=== PATIENT | female | born 1985 | race Caucasian/White ===

== ENCOUNTER → 2018-12-29 | Outpatient (CLI) | payer OTHER ==
--- NOTE | 2018-12-29 12:01 | RADIOLOGY IMAGING REPORT ---
FACILITY: [facility] - [place] PATIENT NAME: Kelly Caldwell : 1985 MR: [id number] V: [id number] EXAM DATE: ORDERING PHYSICIAN: EDGAR AGUIRRE TECHNOLOGIST: Location: [facility] - [place] Patient: Kelly Caldwell : 1985 Visit/Account:[id number] Date of Sevice: 12/29/2018 Exam type: SOFT TISSUE HEAD NECK History: Three lumps in right occipital area x1 month Comparison: None. Findings: Five ovoid well-circumscribed hypoechoic masses are seen in the subcutaneous soft tissues in the occi pital region ranging in size from 8 mm to 1.3 cm. These appear hypovascular. These may represent ly mph nodes IMPRESSION: 1. There five ovoid well-circumscribed hypoechoic masses measuring up to 1.3 cm in diameter along th e posterior right occiput. This may represent lymph nodes. If further evaluation is desired CT or M R may be helpful with contrast Report Dictated By: Arabella Quintero MD at 12/29/2018 11:55 AM Report E-Signed By: Arabella Quintero MD at 12/29/2018 11:57 AM WSN:[email or web address]
== END ==
LOC: US 08:58
PROVIDERS: ATTEND Nurse Practitioner Family
DX: R22.1 Localized swelling, mass and lump, neck (principal)
CPT/HCPCS: 76536

== ENCOUNTER 2019-01-10 15:25 | Outpatient (RCR) | payer OTHER ==
[2019-01-17] MEDS ORDERED: INSU100V24 SQ (11:26)
[2019-01-17] MEDS ORDERED: CITA-145 PO (11:43)
[2019-01-17] MEDS ORDERED: LEVO150T78 PO (11:43)
== END 2019-01-10 18:00 | disposition home or self-care (01) ==
LOC: CT 15:25 → EDSTATUS 01-11 15:25
PROVIDERS: ATTEND Nurse Practitioner Family
DX: Z01.812 Encounter for preprocedural laboratory examination (principal); R22.0 Localized swelling, mass and lump, head
CPT/HCPCS: 36415; 82565

== ENCOUNTER → 2019-01-11 | Outpatient (CLI) | payer OTHER ==
[~2019-01-11] MED LIST: IOPAMIDOL 76% 100 ML INFUS BTL 100 ML ONE; LORA-1455 PO
--- NOTE | 2019-01-11 16:39 | RADIOLOGY IMAGING REPORT ---
FACILITY: [facility] - [place] PATIENT NAME: Kelly Caldwell : 1985 MR: [id number] V: [id number] EXAM DATE: ORDERING PHYSICIAN: EDGAR AGUIRRE TECHNOLOGIST: Location: [facility] - [place], [place] Patient: Kelly Caldwell : 1985 Visit/Account:[id number] Date of Sevice: 01/11/2019 Study: CT scan of the brain without and with intravenous contrast. Contrast: 75 mL Isovue-370 Indication:Nodules right occipital area Comparison study:None Technique: Multiple axial images were obtained through the brain without and with the use of intraven ous contrast. One of the following dose optimization techniques was utilized in the performance of this exam: Autom ated exposure control; adjustment of the mA and/or kV according to the patient's size; or use of an i terative reconstruction technique. Specific details can be referenced in the facility's radiology C T exam operational policy. The examination demonstrates no evidence of acute intracranial hemorrhage. There is no evidence of ex tra-axial collection or hydrocephalus. There is no abnormal density identified within the brain parenchyma. There is no evidence of disruption of the peripheral barber-white junction. There is no abnormal contrast enhancement identified. The bony structures are unremarkable. Within the upper neck, there are nodular densities within the subcutaneous fat posteriorly. These wi ll be discussed on the accompanying CT scan of the neck. IMPRESSION:Unremarkable CT scan of the brain without and with contrast. There are nodular densities within the subcutaneous fat of the upper neck. Report Dictated By: Adriano Andersen at 01/11/2019 4:30 PM Report E-Signed By: Adriano Andersen at 01/11/2019 4:34 PM WSN:[id number]
--- NOTE | 2019-01-11 17:00 | RADIOLOGY IMAGING REPORT ---
FACILITY: [facility] - [place] PATIENT NAME: Kelly Caldwell : 1985 MR: [id number] V: [id number] EXAM DATE: ORDERING PHYSICIAN: EDGAR AGUIRRE TECHNOLOGIST: Location: Patient: Kelly Caldwell : 1985 Visit/Account:[id number] Date of Sevice: 01/11/2019 Study: CT scan of the neck with intravenous contrast Indication: Posterior neck subcutaneous nodules Contrast utilized: 75 mL Isovue 370 Technique: Multiple axial images were obtained through the neck following the intravenous administrat ion of iodinated contrast. Coronal and sagittal two-dimensional reconstructions were made from the original data set. One of the following dose optimization techniques was utilized in the performance of this exam: Autom ated exposure control; adjustment of the mA and/or kV according to the patient's size; or use of an i terative reconstruction technique. Specific details can be referenced in the facility's radiology C T exam operational policy. The examination demonstrates the presence of adenopathy within the axillary bilaterally. There is no significant mediastinal adenopathy. There is a solitary enlarged 1.5 cm lymph node within the level two region bilaterally. There are several small enhancing subcutaneous nodules present in the superior posterior neck. These likely represent small lymph nodes. The airway is unremarkable. There is no evidence of abnormality of the parotid or submandibular glan ds. The tongue base and floor of mouth are unremarkable. The thyroid gland is unremarkable. IMPRESSION: Widespread adenopathy as described. The adenopathy is most marked in the axillae bilater ally. This is concerning for a disseminated lymphoma. Clinical correlation is recommended. Toyin, a nurse at the office was made aware of these findings at 4:45 PM Report Dictated By: Adriano Andersen at 01/11/2019 4:34 PM Report E-Signed By: Adriano Andersen at 01/11/2019 4:56 PM WSN:[id number]
== END ==
LOC: CT 14:50
PROVIDERS: ATTEND Nurse Practitioner Family
DX: R22.1 Localized swelling, mass and lump, neck (principal); R22.0 Localized swelling, mass and lump, head
CPT/HCPCS: 70470; 70491; Q9967

== ENCOUNTER 2019-01-13 10:34 | Emergency (ER) | payer OTHER ==
[2019-01-13 10:57] VITALS: BP 117/70
--- NOTE | 2019-01-13 11:17 | ER Report ---
History and Physical Time Seen By MD: 11:17 Hx. of Stated Complaint: PATIENT HAD CAT SCAN DONE ON TUESDAY THAT SHOWED ADENOPATHY IN THE NECK AND LYMPH NODES IN THE CHEST. PATIENT HAS SHORTNESS OF BREATH WHILE LAYING DOWN THAT FEELS LIKE PRESSURE AND DOES NOT FEEL SAFE TO SLEEP HPI/ROS CHIEF COMPLAINT: Shortness of breath, enlarged lymph nodes HISTORY OF PRESENT ILLNESS: 23-year-old female patient presents to emergency room with complaint of shortness of breath, enlarged lymph nodes. Patient states she has been having enlarged lymph nodes for quite some time. She saw her primary care provider who ordered an ultrasound and ultimately CT scan. The results showed enlarged lymph nodes in bilateral axilla. Patient states that she has struggled recently. Stating that she has a hard time laying down at night. She states when that happens become short of breath. She denies any fevers, but states she has had chills starting yesterday and today. She denies any nausea, vomiting or diarrhea. Patient states she's had a cough for approximately 2-3 weeks. She does have a follow-up appointment with oncology on Tuesday. REVIEW OF SYSTEMS: Respiratory: As noted above. Cardiovascular: No chest pain, no palpitations. Gastrointestinal: No vomiting, no abdominal pain. Musculoskeletal: No back pain. Allergies: Coded Allergies: No Known Drug Allergies (Unverified , 01/13/19) Home Meds Active Scripts Lorazepam (ATIVAN) 0.5 Mg Tablet, 0.5 MG PO Q4-6H, #20 TAB Prov:CASSIUS RODARTE LORENA 01/13/19 Past Medical/Surgical History Patient has a past medical history of diabetes, hypothyroidism, anxiety. Patient has no pertinent surgical history. Reviewed Nurses Notes: Yes Hx Substance Use Disorder: No Hx Alcohol Use: No Constitutional Vital Sign - Last 24 Hours 01/13/19 01/13/19 01/13/19 01/13/19 10:34 10:50 10:54 10:57 Temp 98.5 Pulse 82 84 88 Resp 18 B/P (MAP) 117/70 117/70 (86) Pulse Ox 98 O2 Delivery Room Air 01/13/19 01/13/19 01/13/19 01/13/19 11:14 11:34 11:54 12:14 Pulse 87 81 85 82 Pulse Ox 98 94 94 Physical Exam General Appearance: The patient is alert, has no immediate need for airway protection and no current signs of toxicity. Respiratory: Chest is non tender, lungs are clear to auscultation. Cardiac: regular rate and rhythm Gastrointestinal: Abdomen is soft and non tender, no masses, bowel sounds normal. Musculoskeletal: Neck: Neck is supple and non tender. Extremities have full range of motion and are non tender. Skin: No rashes or lesions. DIFFERENTIAL DIAGNOSIS: After history and physical exam differential diagnosis was considered for influenza, infection, pneumonia, bronchitis Medical Decision Making Data Points Result Diagram: 01/13/19 1149 01/13/19 1149 Laboratory Hematology Test 01/13/19 11:49 01/13/19 12:02 Red Blood Count 4.26 M/uL (4.17-5.56) Mean Corpuscular Volume 93.8 fL (80.0-96.0) Mean Corpuscular Hemoglobin 31.4 pg (26.0-33.0) Mean Corpuscular Hemoglobin Concent 33.5 g/dL (32.0-36.0) Red Cell Distribution Width 13.7 % (11.5-14.5) Mean Platelet Volume 7.8 fL (7.2-11.1) Neutrophils (%) (Auto) 84.0 % (39.4-72.5) Lymphocytes (%) (Auto) 10.6 % (17.6-49.6) Monocytes (%) (Auto) 4.9 % (4.1-12.4) Eosinophils (%) (Auto) 0.1 % (0.4-6.7) Basophils (%) (Auto) 0.4 % (0.3-1.4) Nucleated RBC Relative Count (auto) 0.1 /100WBC Neutrophils # (Auto) 9.7 K/uL (2.0-7.4) Lymphocytes # (Auto) 1.2 K/uL (1.3-3.6) Monocytes # (Auto) 0.6 K/uL (0.3-1.0) Eosinophils # (Auto) 0.0 K/uL (0.0-0.5) Basophils # (Auto) 0.0 K/uL (0.0-0.1) Nucleated RBC Absolute Count (auto) 0.01 K/uL D-Dimer Quantitative (PE/DVT) < 0.27 ug/ml (0-0.50) Sodium Level 136 mmol/L (137-145) Potassium Level 4.2 mmol/L (3.5-5.0) Chloride Level 101 mmol/L (98-107) Carbon Dioxide Level 25 mmol/L (22-31) Blood Urea Nitrogen 9 mg/dl (7-18) Creatinine 0.80 mg/dl (0.52-1.04) Glomerular Filtration Rate Calc > 60.0 Random Glucose 265 mg/dl (75-110) Calcium Level 9.1 mg/dl (8.4-10.2) Total Bilirubin 0.9 mg/dl (0.2-1.3) Aspartate Amino Transf (AST/SGOT) 25 U/L (0-35) Alanine Aminotransferase (ALT/SGPT) 30 U/L (0-56) Alkaline Phosphatase 62 U/L (0-126) Total Protein 7.9 g/dl (6.3-8.2) Albumin 4.4 g/dl (3.5-5.0) Urine Color Straw Urine Clarity Clear Urine pH 6.0 pH (4.8-9.5) Urine Specific [place] 1.003 Urine Protein Negative mg/dL (NEGATIVE) Urine Glucose (UA) 500 mg/dL (NEGATIVE) Urine Ketones 20 mg/dL (NEGATIVE) Urine Blood Moderate (NEGATIVE) Urine Nitrite Negative (NEGATIVE) Urine Bilirubin Negative (NEGATIVE) Urine Urobilinogen Negative mg/dL (0.2-1.9) Urine Leukocyte Esterase Negative (NEGATIVE) Urine RBC 1 /HPF (0-2/HPF) Urine WBC None /HPF (0-5/HPF) Urine Squamous Epithelial Cells Few /LPF (</=FEW) Urine Bacteria Negative /HPF (NONE-FEW) Urine Mucus None /HPF (NONE-FEW) Influenza Virus Type A (PCR) Negative (NEGATIVE) Influenza Virus Type B (PCR) Negative (NEGATIVE) Chemistry Test 01/13/19 11:49 01/13/19 12:02 White Blood Count 11.6 k/uL (4.5-11.0) Red Blood Count 4.26 M/uL (4.17-5.56) Hemoglobin 13.4 g/dL (12.0-16.0) Hematocrit 40.0 % (34.0-47.0) Mean Corpuscular Volume 93.8 fL (80.0-96.0) Mean Corpuscular Hemoglobin 31.4 pg (26.0-33.0) Mean Corpuscular Hemoglobin Concent 33.5 g/dL (32.0-36.0) Red Cell Distribution Width 13.7 % (11.5-14.5) Platelet Count 408 K/uL (150-450) Mean Platelet Volume 7.8 fL (7.2-11.1) Neutrophils (%) (Auto) 84.0 % (39.4-72.5) Lymphocytes (%) (Auto) 10.6 % (17.6-49.6) Monocytes (%) (Auto) 4.9 % (4.1-12.4) Eosinophils (%) (Auto) 0.1 % (0.4-6.7) Basophils (%) (Auto) 0.4 % (0.3-1.4) Nucleated RBC Relative Count (auto) 0.1 /100WBC Neutrophils # (Auto) 9.7 K/uL (2.0-7.4) Lymphocytes # (Auto) 1.2 K/uL (1.3-3.6) Monocytes # (Auto) 0.6 K/uL (0.3-1.0) Eosinophils # (Auto) 0.0 K/uL (0.0-0.5) Basophils # (Auto) 0.0 K/uL (0.0-0.1) Nucleated RBC Absolute Count (auto) 0.01 K/uL D-Dimer Quantitative (PE/DVT) < 0.27 ug/ml (0-0.50) Glomerular Filtration Rate Calc > 60.0 Calcium Level 9.1 mg/dl (8.4-10.2) Total Bilirubin 0.9 mg/dl (0.2-1.3) Aspartate Amino Transf (AST/SGOT) 25 U/L (0-35) Alanine Aminotransferase (ALT/SGPT) 30 U/L (0-56) Alkaline Phosphatase 62 U/L (0-126) Total Protein 7.9 g/dl (6.3-8.2) Albumin 4.4 g/dl (3.5-5.0) Urine Color Straw Urine Clarity Clear Urine pH 6.0 pH (4.8-9.5) Urine Specific [place] 1.003 Urine Protein Negative mg/dL (NEGATIVE) Urine Glucose (UA) 500 mg/dL (NEGATIVE) Urine Ketones 20 mg/dL (NEGATIVE) Urine Blood Moderate (NEGATIVE) Urine Nitrite Negative (NEGATIVE) Urine Bilirubin Negative (NEGATIVE) Urine Urobilinogen Negative mg/dL (0.2-1.9) Urine Leukocyte Esterase Negative (NEGATIVE) Urine RBC 1 /HPF (0-2/HPF) Urine WBC None /HPF (0-5/HPF) Urine Squamous Epithelial Cells Few /LPF (</=FEW) Urine Bacteria Negative /HPF (NONE-FEW) Urine Mucus None /HPF (NONE-FEW) Influenza Virus Type A (PCR) Negative (NEGATIVE) Influenza Virus Type B (PCR) Negative (NEGATIVE) Coagulation Test 01/13/19 11:49 D-Dimer Quantitative (PE/DVT) < 0.27 ug/ml Urinalysis Test 01/13/19 12:02 Urine Color Straw Urine Clarity Clear Urine pH 6.0 pH (4.8-9.5) Urine Specific [place] 1.003 Urine Protein Negative mg/dL (NEGATIVE) Urine Glucose (UA) 500 mg/dL (NEGATIVE) Urine Ketones 20 mg/dL (NEGATIVE) Urine Blood Moderate (NEGATIVE) Urine Nitrite Negative (NEGATIVE) Urine Bilirubin Negative (NEGATIVE) Urine Urobilinogen Negative mg/dL (0.2-1.9) Urine Leukocyte Esterase Negative (NEGATIVE) Urine RBC 1 /HPF (0-2/HPF) Urine WBC None /HPF (0-5/HPF) Urine Squamous Epithelial Cells Few /LPF (</=FEW) Urine Bacteria Negative /HPF (NONE-FEW) Urine Mucus None /HPF (NONE-FEW) EKG/Imaging Imaging Technique: CHEST PA LAT HISTORY: shortness of breath COMPARISON: None available Findings: The lungs are clear. No pleural effusion or pneumothorax. The cardiomediastinal silhouette is normal. Impression: 1. No acute cardiopulmonary process. Report Dictated By: Lonnie Rausch DO at 01/13/2019 12:36 PM Report E-Signed By: Lonnie Rausch DO at 01/13/2019 12:36 PM ED Course/Re-evaluation ED Course Patient was admitted to an exam room, history and physical were obtained. Differential diagnoses were considered. On examination lungs are clear, heart is regular, abdomen soft nontender. A CBC, CMP, chest x-ray, d-dimer were done. The lab results were unremarkable. The chest x-ray showed no acute findings. Patient did receive 0.5 mg of Ativan here in the emergency room via IV as well as 1 L of normal saline. Patient was able to get some rest was able to sleep. She states she was able to sleep without feeling like she was unable to breathe. I discussed the findings of the labs as well as the chest x-ray with the patient and her father. It is my believe this time patient is having a lot of anxiety level stress related to the results of her imaging, which showed a possible lymphoma. We will go ahead and discharge patient home at this time with a prescription for some Ativan. She is to take that as needed. She stated increase her fluid intake, get plenty of rest. I did give her the information for the general surgeons here in town, as I believe that she does need to have a biopsy done of the lymph nodes. I would like her to go ahead and continue with her normal medication and get plenty of rest. She is return to emergency room if condition worsens. Patient and her father verbalized understanding and agreement with plan. Decision to Disposition Date: Jan 13, 2019 Decision to Disposition Time: 13:16 Depart Departure Latest Vital Signs Vital Signs Date Time Temp Pulse Resp B/P (MAP) Pulse Ox O2 Delivery O2 Flow Rate FiO2 01/13/19 12:14 82 94 01/13/19 10:57 117/70 (86) 01/13/19 10:50 98.5 18 Room Air Impression: Primary Impression: Anxiety about health Additional Impression: Enlarged lymph nodes Condition: Improved Disposition: HOME OR SELF-CARE Referrals: JADE ONEAL JOHN A MD New Scripts Lorazepam (ATIVAN) 0.5 Mg Tablet 0.5 MG PO Q4-6H, #20 TAB Prov: CASSIUS RODARTE 01/13/19 Patient Instructions: Anxiety (ED) Additional Instructions: Continue with normal activity. Get plenty of rest. Continue with your normal medications. Return to the ER if condition worsens. Call one of the general surgeons on Tuesday to make an appointment. Follow up with Oncology on Tuesday as scheduled. Problem Qualifiers CASSIUS RODARTE Jan 13, 2019 11:17
[2019-01-13] MEDS ORDERED: LORazepam 2 MG/ML VIAL IVP ONE (11:30)
[2019-01-13] MEDS ORDERED: NS(*) 0.9% 1000 ML BAG 1,000 ML IV ONE (11:30)
[2019-01-13 12:01] LABS: PLATELET COUNT, AUTOMATED 408 K/uL (150-450)
--- NOTE | 2019-01-13 12:40 | RADIOLOGY IMAGING REPORT ---
FACILITY: [facility] [place]IENT NAME: Kelly Caldwell : 1985 MR: [id number] V: [id number] EXAM DATE: ORDERING PHYSICIAN: CASSIUS RODARTE TECHNOLOGIST: Location: [facility] - [place] Patient: Kelly Caldwell : 1985 Visit/Account:[id number] Date of Sevice: 01/13/2019 Technique: CHEST PA LAT HISTORY: shortness of breath COMPARISON: None available Findings: The lungs are clear. No pleural effusion or pneumothorax. The cardiomediastinal silhouett e is normal. Impression: 1. No acute cardiopulmonary process. Report Dictated By: Lonnie Rausch DO at 01/13/2019 12:36 PM Report E-Signed By: Lonnie Rausch DO at 01/13/2019 12:36 PM WSN:[id number]
[2019-01-13] MEDS ORDERED: LORA-1455 PO (13:14)
== END 2019-01-13 13:34 | disposition home or self-care (01) ==
LOC: ER 11:02
DX: F41.9 Anxiety disorder, unspecified (principal); R59.0 Localized enlarged lymph nodes
CPT/HCPCS: 71046; 81001; 85025; 85379; 87502; 96361; 96374; 99283; J2060; J7030; 82040; 82247; 82310; 82374; 82435; 82565; 82947; 84075; 84132; 84155; 84295; 84450; 84460; 84520

== ENCOUNTER → 2019-01-16 | Outpatient (CLI) | payer OTHER ==
[~2019-01-16] MED LIST changes: +CITA-145 PO; +INSU100V24 SQ; +LEVO150T78 PO
--- NOTE | 2019-01-16 17:01 | RADIOLOGY IMAGING REPORT ---
FACILITY: [facility] - [place] PATIENT NAME: Kelly Caldwell : 1985 MR: [id number] V: [id number] EXAM DATE: [id number] ORDERING PHYSICIAN: EDGAR AGUIRRE TECHNOLOGIST: [place] [facility] [place]: Kelly Caldwell : 1985 Visit/Account:[id number] Date of Sevice: 01/16/2019 CT ABDOMEN PELVIS W/ CON HISTORY: Widespread adenopathy TECHNIQUE: Following administration of IV contrast contiguous axial images acquired through the abdom en/pelvis. Coronal and sagittal reformatting also performed.Dose Lowering Technique One of the following dose optimization techniques was utilized in the performance of this exam: Autom ated exposure control; adjustment of the mA and/or kV according to the patient's size; or use of an i terative reconstruction technique. Specific details can be referenced in the facility's radiology C T exam operational policy. CONTRAST: 75 mL Isovue-370 COMPARISON: CT neck January 11, 2019 FINDINGS: Visualized lung bases: Negative. Hepatobiliary: Liver is enlarged measuring 19.4 cm in length Spleen: Spleen appears mildly heterogeneous and has a extremely lobular contour Adrenals: Negative. Pancreas: Negative. Kidneys ureters or bladder: Negative Genitalia: There is a 2.5 cm right adnexal cyst and a 2 cm left adnexal cyst GI: Negative. Vessels/spaces/nodes: There are numerous bilateral inguinal lymph nodes. Most do not appear enlarge d by size criteria There is a 1.6 x 0.6 cm right external iliac lymph node. There is a 1 x 0.5 cm left external iliac lymph node. There is a 1 x 0.6 cm right common iliac lymph node. There is a 1 x 0.8 cm left common iliac lymph node Bones/soft tissues: There is mild disc space narrowing and posterior spurring at L5-S1. Bulging dis cs are also noted at L3-4, L4-5 and L5-S1 Additional findings: None pertinent. IMPRESSION: Mild hepatomegaly The spleen is mildly heterogeneous and has an extremely lobular contour Bilateral adnexal cysts There are numerous bilateral inguinal lymph nodes although post do not appear enlarged by size criter ia. There are also bilateral common iliac and external iliac lymph nodes also not enlarged by size c riteria. This may represent a lymphoproliferative process particularly in correlation with the recent CT of th e neck including axillary adenopathy. Lymphoma cannot be excluded Report Dictated By: Arabella Quintero MD at 01/16/2019 4:39 PM Report E-Signed By: Arabella Quintero MD at 01/16/2019 4:56 PM WSN:[email or web address]
== END ==
LOC: CT 01:13
PROVIDERS: ATTEND Nurse Practitioner Family
DX: R16.2 Hepatomegaly with splenomegaly, not elsewhere classified (principal); R59.0 Localized enlarged lymph nodes
CPT/HCPCS: 74177; Q9967

== ENCOUNTER → 2019-01-17 | Outpatient (CLI) | payer OTHER ==
[~2019-01-17] MED LIST changes: +BIRTH CONTROL PILL PO; -IOPAMIDOL 76% 100 ML INFUS BTL 100 ML ONE; +MULT1CAP59 PO; +TRAM-420 PO
== END ==
LOC: SPU 12:11
PROVIDERS: ATTEND Surgery
DX: E11.9 Type 2 diabetes mellitus without complications (principal)

== ENCOUNTER → 2019-01-17 | Outpatient (CLI) | payer OTHER | LOC: RESP 11:30 | PROVIDERS: ATTEND Surgery | DX: Z02.9 Encounter for administrative examinations, unspecified (principal) ==

== ENCOUNTER 2019-01-18 00:35 | Day surgery (SDC) | payer OTHER ==
--- NOTE | 2019-01-17 23:15 | EKG ---
FACILITY: [facility] [place] PATIENT NAME: ANIVAL CRABTREE : [id number] MR: [id number] V: [id number] EXAM DATE: ORDERING PHYSICIAN: JADE ONEAL TECHNOLOGIST: CHICHI Test Reason : PREOP CLEARANCE Blood Pressure : / mmHG Vent. Rate : 069 BPM Atrial Rate : 069 BPM P-R Int : 126 ms QRS Dur : 086 ms QT Int : 404 ms P-R-T Axes : 071 079 051 degrees QTc Int : 432 ms Normal sinus rhythm with sinus arrhythmia Normal ECG No previous ECGs available Confirmed by ALLEGRA HAYES ([id number]) on 01/18/2019 6:30:04 AM Referred By: KIMMY Confirmed By:ALLEGRA HAYES
[~2019-01-18] VITALS: Ht 162.6 cm; Wt 67.6 kg
[2019-01-18] VITALS (8 sets, daily range): BP systolic 94–110; BP diastolic 55–74
[~2019-01-18 00:35] MED LIST changes: -BIRTH CONTROL PILL PO; -MULT1CAP59 PO; -TRAM-420 PO
[2019-01-18] MEDS ORDERED: NORMOSOL R SOLN(*) 1000 ML BAG 1,000 ML IV PRN (10:00)
[2019-01-18] MEDS ORDERED: LIDOCAINE/SOD BICARB 8.4% SYR ID ONE (10:00)
[2019-01-18] MEDS ORDERED: ceFAZolin(*) 2GM/D5W 50ML 50 ML IVPB ONE (10:00)
[2019-01-18] MEDS ORDERED: BUPIVACAINE/EPI 0.5% 50ML VIAL INFIL ONE (10:02)
[2019-01-18] MEDS ORDERED: LIDO/EPI 1% MDV 1:100,000 20ML INFIL ONE (10:46)
[2019-01-18] MEDS ORDERED: MIDAZOLAM 2 MG/2 ML VIAL IVP PRN (10:50)
[2019-01-18] MEDS ORDERED: PROPOFOL EMUL(*) 10MG/ML 20 ML 60 ML ONE (10:51)
[2019-01-18] MEDS ORDERED: REMIFENTANIL HCL 1 MG VIAL ONE (10:53)
--- NOTE | 2019-01-18 12:30 | NUR ---
1230- SBAR FROM REGGIE RN 1235- RN INTO ROOM, PT SHAKING, REQUESTING WATER 1240- IV DEMEROL 12.5 MG GIVEN, SEE EMAR FOR DETAILS 1242- 2ND NR BAG HUNG AND IV FLUSHED AND PATENT 1244- PT LAID BACK AND WOULD LIKE TO REST, WILL CONTINUE TO MONITOR PT
[2019-01-18] MEDS ORDERED: TRAM-420 PO (12:32)
[2019-01-18] MEDS ORDERED: MEPERIDINE HCL 50 MG/ML SDV 50 MG/ML VIAL ONE (12:34)
--- NOTE | 2019-01-18 12:35 | Short(Outpt) Discharge Summary ---
Discharge Summary Reason for Hosp/Final Diag: (1) Enlarged lymph nodes Status: Acute Hospital Course & Plan: pt presented for lymph node bx. she tolerated the procedure well and there were no complications. she will be discharged home when criteria met. Departure Discharge to: Home Discharge Instructions Home Meds Active Scripts Tramadol Hcl (TRAMADOL HCL) 50 Mg Tablet, 50 MG PO Q4H PRN for PAIN, #14 TAB Prov:JADE MARTINEZ 01/18/19 Lorazepam (ATIVAN) 0.5 Mg Tablet, 0.5 MG PO Q4-6H, #20 TAB Prov:CASSIUS RODARTE 01/13/19 Reported Medications Citalopram Hydrobromide (CITALOPRAM HBR) 20 Mg Tablet, 20 MG PO QDAY, #5 TAB 01/17/19 Levothyroxine Sodium (LEVOTHYROXINE SODIUM) 150 Mcg Tablet, 125 MCG PO QDAY 01/17/19 Insulin Lispro 100 Un/Ml Vial (HUMALOG 100 U/ML VIAL) 100 Unit/1 Ml Vial, 100 UNIT SQ, VIAL 01/17/19 Diet: Regular Activity: As Tolerated Special Instructions: ok to shower tomorrow. take stool softener while taking pain meds. follow [facility] 1 wk ([phone]) JADE MARTINEZ Jan 18, 2019 12:35
--- NOTE | 2019-01-18 12:40 | Post Operative Progress Note ---
Post Operative Progress Note Date: Jan 18, 2019 Time: 12:35 Surgeon: dr. shonda martinez #[id number] Lobsterman: none Anesthesia: mac, local dr. regan Pre-Op Diagnosis: lymphadenopathy Post-Op Diagnosis: same Findings: enlarged lymph node left groin Procedure(s): excisional bx of lymph node Specimen Removed:(May be N/A): lymph node from left groin Complications: none Estimated Blood Loss: minimal Date OP Note Dictated: Jan 18, 2019 Time OP Note Dictated: 12:36 JADE MARTINEZ Jan 18, 2019 12:40
--- NOTE | 2019-01-18 12:58 | NUR ---
1258- UPDATED FAMILY IN WR
--- NOTE | 2019-01-18 13:00 | NUR ---
1300- RN INTO ROOM, PT RESTING WITH EYES SHUT, VSS
--- NOTE | 2019-01-18 13:40 | NUR ---
1340- DR. ONEAL AT BEDSIDE- PT SLEEPING WITH EYES SHUT, VSS, WILL CONTINUE TO MONITOR
--- NOTE | 2019-01-18 13:58 | OPERATIVE REPORT 1 ---
EVENT DATE: January 18, 2019 SURGEON: Rene Vanessa MD ANESTHESIOLOGIST: Jose Manuel Sargent MD ANESTHESIA: MAC and local. AGENT CONTRACT CLERK: None. PREOPERATIVE DIAGNOSIS Lymphadenopathy. POSTOPERATIVE DIAGNOSIS Lymphadenopathy. PROCEDURE PERFORMED 1. Excisional biopsy of lymph node from left groin. 2. Attempted lymph node biopsy from right neck. FLUIDS IV crystalloids. ESTIMATED BLOOD LOSS Minimal. SPECIMENS Lymph node from left groin. COMPLICATIONS None. INDICATION This is a 33-year old female with lymphadenopathy. Risks and benefits of the procedure were explained and consent was signed. DESCRIPTION OF PROCEDURE The patient was taken to the operating room, placed in the supine position and MAC anesthesia administered per the Anesthesia team. I examined the patient's left groin, right anterior axillary and right neck both by palpation and with ultrasound and the largest lymph node I found was in the left groin. I also found a smaller lymph node in the right neck. The patient was prepped and draped in normal sterile fashion. Local analgesia was injected into the dermis over the left groin lymph node and a small incision was made approximately 2 cm in length. Dissection was carried down with LigaSure bluntly to the lymph node. The lymph node was freed of surrounding tissue with LigaSure. The lymph node was removed and sent to pathology as a fresh specimen. The subcutaneous tissue and deep dermal tissue was then closed with interrupted 3-0 Vicryl stitches and the skin was approximated with a running 4-0 Monocryl subcuticular stitch. I then injected local analgesia over the lymph node in the right neck. A 1.5 cm incision was made. Dissection was carried down through the subcutaneous tissue into the musculature bluntly and with some LigaSure and some sharp dissection. As I got closer to the lymph node, it felt quite small, less than 1 cm, and i decided further dissection was not appropriate. Therefore, the wound was closed with deep dermal 3-0 Vicryl interrupted stitches and interrupted 4-0 Monocryl subcuticular stitches. Appropriate dressings were applied. Patient tolerated the procedure well. There were no complications. [facility]
--- NOTE | 2019-01-18 14:00 | NUR ---
1400- PT AWAKE, A/O X 3, PT REQUESTING TO GO HOME, VSS
[2019-01-18] MEDS ORDERED: traMADol 50 MG TAB PO ONE (14:10)
--- NOTE | 2019-01-18 14:15 | NUR ---
1415- AT BEDSIDE, PT TOLERATING CHEESE CRACKERS
--- NOTE | 2019-01-18 14:18 | NUR ---
1418- FAMILY AT BEDSIDE
--- NOTE | 2019-01-18 14:28 | NUR ---
1428- TRAMADOL PO GIVEN FOR INCISIONAL PAIN, SEE EMAR FOR DETAILS
--- NOTE | 2019-01-18 14:32 | NUR ---
1432- PT ORTHOSTATIC VSS 1434- PT UP TO RESTROOM, STABLE GAIT NOTED 1437- VOID X 1 WITHOUT ISSUE 1441- D/C IV WITH CATH INTACT, PRESSURE DRESSING APPLIED WITH GAUZE AND COBAND 1443- PT DRESSED 1447- REVIEWED D/C INSTRUCTIONS WITH PT AND , PT VERBALIZED UNDERSTANDING 1450- PT AMBULATORY TO [facility], ACCOMPANIED BY NICOLETTE VILLALBA AND BELLA
[2019-01-18] MEDS ORDERED: BIRTH CONTROL PILL PO (15:00)
[2019-01-18] MEDS ORDERED: MULT1CAP59 PO (15:00)
== END 2019-01-18 14:50 | disposition home or self-care (01) ==
LOC: OR 00:35
PROVIDERS: ATTEND Surgery
DX: R59.1 Generalized enlarged lymph nodes (principal); E11.9 Type 2 diabetes mellitus without complications
CPT/HCPCS: 36416; 38500; 81025; 82948; 88305; J2175; J2250; J2704; J0690

== ENCOUNTER 2019-01-31 14:26 | Outpatient (RCR) | payer OTHER ==
[2019-01-17 12:41] LABS: PLATELET COUNT, AUTOMATED 386 K/uL (150-450)
--- NOTE | 2019-01-19 12:56 | ONCOLOGY CONSULTATION ---
EVENT DATE: January 17, 2019 CHIEF COMPLAINT Patient is being seen today for a consultation for adenopathy, seen on recent imaging. HISTORY OF PRESENT ILLNESS Ms. Caldwell is a young pleasant 33-year old woman who I'm seeing today for consultation as Dr. Lorenoz is out of the clinic due to weather conditions. a She has recently noticed some enlarged lymph nodes, which initially began with an occipital lymph node. She then noticed two others directly below that. She had a nurse friend of hers palpate these and evaluate these and was told that this could be abnormal swelling. She first noticed the occipital lymphadenopathy around November 05 or November 06, 2018. She also has some generalized abdominal pain, back pain and fatigue. She also reports that she has lost quite a bit of weight over the last year. She had previously reported about a 30 pound weight loss in just over a year. This was not intentional. She does state that she has quite a bit of psychosocial stressors going on and was not sure if this was just related simply to stress or some underlying physiologic etiology. She has a 1-year old daughter with Down syndrome. Her mother also recently from cancer and Kelly will be scattering her ashes later this week. In regards to her pain, she is also reporting that she has noted some bilateral neck and shoulder pain for at least the last week. She feels that this affects her arms as well with the left arm worse than the right. She has not noticed any swelling or numbness and tingling in her arms or fingers but reports a significant amount of soreness in her left upper arm, again worse than the right. She has also felt some chest pain and heaviness but believes that this may not be physiologic and believes that this may be psychological. When she takes lorazepam at bedtime, this does help with her sense of chest pain. She has also incidentally noted a lump on her right anterior chest wall near her breast and is unsure if this is a lymph node. She does also have a history of Type 1 diabetes, currently on insulin. She follows up with Roxann Shaikh, nurse practitioner, and was seen as recently as December 05, 2018. She believes that she has palpated numerous lymph nodes. She tells me that she recently saw a surgeon for consultation this morning and tells me that on that exam inguinal lymph nodes were palpated. She has had a CT of the abdomen and pelvis on January 16, 2019. She had a soft tissue neck CT on January 11, 2019, a head CT on January 11, 2019, a head and neck ultrasound on December 29, 2018, as well as chest x-ray on January 13, 2019. She is accompanied in the office by her spouse and their 1-year old daughter. PAST MEDICAL HISTORY 1. Type 2 diabetes. 2. Hypothyroidism. 3. Anxiety/depression. FAMILY HISTORY Positive for mother with breast cancer, recently . SOCIAL HISTORY Patient is and has a 1-year old daughter with Down syndrome. She denies any alcohol abuse. She denies any illicit drug use. MEDICATIONS 1. Lorazepam 0.5 mg p.o. q. 6 hours p.r.n. anxiety. 2. Levothyroxine 150 mcg daily. 3. Citalopram 20 mg daily. 4. Humalog insulin. ALLERGIES No known drug allergies. REVIEW OF SYSTEMS CONSTITUTIONAL: Patient reports fatigue. She denies any fever, chills or night sweats. She does occasionally feel hot but does not believe that these are night sweats. She has also reported about a 30-pound weight loss in just over a year, which was unintentional. EYES: No blurry vision. HEENT: No mouth sores or oral lesions. NECK: She has some generalized musculoskeletal neck pain ongoing for at least the last week. CARDIOVASCULAR: She reports a sensation of chest heaviness or chest pressure but denies any palpitations, syncope or presyncope. Her chest pressure or chest pain is alleviated after lorazepam. RESPIRATORY: She denies any shortness of breath. No cough. No sputum production. No hemoptysis. No pruritic chest pain. GI: She has had some intermittent generalized abdominal pain for at least three months now. She denies any nausea or vomiting, no diarrhea. She does have some constipation at times. No bright red blood per rectum. No melena. She reports her appetite is fairly stable. : No dysuria, hematuria or genitourinary discharge. No abnormal vaginal bleeding. She has reported urinating a lot recently. NEURO: She denies any headaches. She denies any numbness or tingling. No difficulty with strength or with ambulation. EXTREMITIES: She denies any lower extremity swelling. DERM: She denies any rash, generalized pruritus, noticeable bruising or free bleeding. She does incidentally report that she has noticed somewhat commercial teller skin and is not sure if that is generalized pruritus. PSYCH: Patient does have a history of some depression and anxiety, currently on citalopram. She denies any suicidal or homicidal ideation. She does report quite a bit of stress in her life over the last year. MUSCULOSKELETAL: She reports generalized arthralgias in the form of back pain, as well as neck and shoulder pain. Her neck and shoulder pain became most noticeable approximately one week ago. It is bilateral and appears muscular in nature to the patient. There is no radiating pain, although she does report that her arms also feel quite sore bilaterally, although left is worse than the right. LYMPH; She initially noticed one occipital lymph node back in October 2018. This was followed by a couple of more lymph nodes directly below that. She now believes that she has felt enlarged lymph nodes all over her body and she has felt one in her right anterior chest wall/breast. She can feel some inguinal lymph nodes as well. She believes she may have an area in her ankle as well but is unsure. The remainder of a 12-point review of systems is performed today and is otherwise negative. PHYSICAL EXAMINATION VITAL SIGNS: Weight today 67.9 kg, temperature 99.2 degrees Fahrenheit, pulse 86, respirations 18, BP 125/94, oxygen saturation 99% room air. CONSTITUTIONAL: In general, this is a pleasant, young, 33-year old woman who appears well-hydrated, well-nourished and is in no acute distress other than some anxiety regarding her visit today. HEAD: Normocephalic, atraumatic. See LYMPH section. EYES: Sclerae anicteric. ENT/MOUTH: No mucositis. No suspicious ulcerations, plaques or exudates. No tonsillar rings on exam. NECK: Supple. No JVD. No cervical lymphadenopathy appreciated. LUNGS: Clear breath sounds to auscultation bilaterally. CARDIOVASCULAR: Regular rate and rhythm. No ectopy. No murmur. ABDOMEN: Soft, nondistended. There is some mild splenomegaly noted on examination today. Liver is palpable and edges are smooth. : Deferred. EXTREMITIES: No bilateral lower extremity edema. No clubbing or cyanosis. NEURO: Patient is awake, alert, oriented x3. No focal deficits. Strength is 5/5 throughout. Gait is steady. PSYCH: Patient is anxious. Mood and affect are otherwise appropriate. LYMPH: Patient does have several enlarged occipital lymph nodes. There are at least three, two located in the right occiput and one on the left occiput. These are only minimally tender on examination. There is a palpable right upper quadrant breast nodule/lymph node palpable on deep examination. This area measures approximately 1 cm. There is bilateral axillary lymphadenopathy, although this is harder to appreciate and palpate on examination today. There is no supraclavicular lymphadenopathy appreciated today. There is bilateral inguinal lymphadenopathy on exam today and is palpable throughout the inguinal chains bilaterally. These are all approximately 1 x 0.5 cm. LABORATORY CBC today: WBC 8.0, ANC 5.3, hemoglobin 12.8, hematocrit 37.8%, platelets 386,000. Differential does not reveal any lymphocytosis or monocytosis and no left shift. CMP today: Largely unremarkable with exception of elevated glucose at 188, although patient is type 1 diabetic. Hemoglobin a1c was done today for her PCP, which was also elevated at 7.4. Sodium normal at 137, potassium 4.4, serum creatinine 0.80, uric acid normal at 4.5, calcium normal 9.1, total bilirubin 0.8, AST 33, ALT 25, alkaline phosphatase 67, LDH normal at 489. Immunoglobulin levels and SPEP and flow cytometry ordered today and are currently pending. IMAGING CT abdomen/pelvis with contrast at [facility] on January 16, 2019: 1. Mild hepatosplenomegaly. 2. The spleen is mildly heterogeneous and has an extremely lobular contour. 3. Bilateral adnexal cysts. 4. There are numerous bilateral inguinal lymph nodes, although do not appear enlarged by size criteria. There are also bilateral common iliac and external iliac lymph nodes, also not enlarged by size criteria. Specifically, there is a 1.6 x 0.6 cm right external iliac lymph node. There is a 1 x 0.5 cm left external iliac lymph node. There is a 1 x 0.6 cm right common iliac lymph node. There is a 1 x 0.8 cm left common iliac lymph node. 5. This may represent a lymphoproliferative process particularly in correlation with the recent CT of the neck including axillary adenopathy. Lymphoma cannot be excluded. 6. Bone/soft tissue. There is mild disk space narrowing and posterior spurring at L5-S1. Bulging disks are noted at L3-4, L4-5 and L5-S1. CT of the neck soft tissue at [facility] on January 31, 2019: 1. Widespread adenopathy as described. The adenopathy is most marked in the axilla bilaterally. 2. This is concerning for a disseminated lymphoma. Clinical correlation is recommended. 3. Exam demonstrates presence of adenopathy within the axilla bilaterally. There is no significant mediastinal adenopathy. There is a solitary enlarged 1.5 cm lymph node within the level 2 region bilaterally. 4. There are several small enhancing subcutaneous nodules present in the superior posterior neck. These likely represent small lymph nodes. CT brain with and without contrast at [facility] on January 11, 2019: 1. Unremarkable CT scan of the brain with and without contrast. 2. There are nodular densities within the subcutaneous fat of the upper neck. CT x-ray at [facility] on January 13, 2019 (for history of shortness of breath): 1. No acute cardiopulmonary process. Lungs are clear. No pleural effusion or pneumothorax. Ultrasound soft tissue head and neck on December 29, 2018: There are five ovoid well-circumscribed hypoechoic masses measuring up to 1.3 cm in diameter along the posterior right occiput. These may represent lymph nodes. If further evaluation is desired, CT or MRI may be helpful with contrast. IMPRESSION AND PLAN This is a pleasant 33-year old woman with a recent history of widespread adenopathy, which she initially noticed in the occiput back in late October 2018. This was followed by several more occipital lymph nodes and she then went to see her PCP on December 05, 2018. Workup was started with ultrasound of the head and neck soft tissue with results noted above. She has had further imaging, which now reveals widespread adenopathy with the occipital lymphadenopathy noted above, level 2 lymph node, bilateral axillary lymphadenopathy as well as bilateral inguinal adenopathy. She does have a history significant for breast carcinoma in her mother, who recently . She is also having quite a few symptoms with reports of generalized and moderate fatigue, arthralgias and myalgias to include lower back pain, generalized abdominal pain with occasional constipation as well as a 30-pound weight loss in just over a year. She denies any significant fevers or night sweats, although did have a type of URI back in October after her 1-year old daughter was also ill with a similar upper respiratory infection. This then resolved, per patient. She is also reporting head and neck musculoskeletal pain bilaterally as well as bilateral arm soreness. There is no edema, erythema or swelling noted in any of her extremities today. Unfortunately, all of the imaging is pointing towards a lymphoproliferative process/lymphoma. Labs today do not reveal any significant abnormalities to include no leukocytosis or lymphocytosis. Chemistry panel was also largely unremarkable with the exception of some diabetes markers to include an elevated random glucose and hemoglobin a1c. I do have more labs pending to include immunoglobulin levels and SPEP as well as a flow cytometry. She will likely have to return to the clinic in a couple of days to have flow cytometry performed due to abnormal weather conditions. We had a very long discussion today regarding potential diagnoses to include lymphoma or non-Hodgkin lymphoma versus Hodgkin lymphoma. We discussed the nature of both of these for quite some time today. We discussed subtypes of NHL to include diffuse large B-cell non-Hodgkin lymphoma, Burkitt lymphoma, follicular lymphoma and CLL/SLL. We also discussed classic Hodgkin's lymphoma, which generally has a higher incident of cure rate. We also discussed potential treatment options with each of these to include systemic chemotherapy plus/minus radiotherapy. We discussed R-CHOP plus/minus radiotherapy and in the event that this is Hodgkin lymphoma, we also discussed ABVD plus/minus radiotherapy. We also had a very short discussion about bone marrow transplant. I did not go into further detail regarding other treatment options for Hodgkin lymphoma and did not discuss therapy with BV plus AVD or BEACOPP versus Yahir V. Unfortunately, this was quite a bit of information for the patient today, although I feel that she handled this quite well given circumstances. I did explain that further workup will be decided on her pathology results from lymph node biopsy, which she is having done tomorrow. I also discussed that we would need to complete the staging process optimally with a PET/CT. If for some reason this would be r denied by insurance, we could potentially complete the staging process with a CT of the chest as she has had CT of the head already as well as CT abdomen and pelvis, although again I did explain that the best option would be to have a PET CT performed. Again, we will need to wait on pathology results and we have requested that these be expedited per our office. 1. Patient with current diagnosis of widespread adenopathy, potentially a lymphoproliferative process such as lymphoma. Treatment options were discussed and patient will be following up with us post biopsy and will be seeing Dr. Beck at her next visit. 2. I discussed her case by phone today with Dr Beck and also explained to the patient that this was discussed. She is aware that we currently had a preliminary discussion today regarding potential treatment options and definitive treatment plan will be based upon pathology results. 3. Anxiety and depression: I have instructed her to continue to use her lorazepam at bedtime as this does help her anxiety and help with this sensation of chest pressure. Of note, she was seen in the ER during an episode of chest pain and workup was unremarkable. 4. Laboratory: I reviewed all of her labs today, at least what was available. She is aware that other labs are still currently pending. 5. She will continue on her home citalopram daily for her depression. 6. Over 1 hour and 15 minutes was spent with the patient today. At least 60 minutes spent on education. Patient did report that she felt all of her questions were answered at this time. LEONARD
[~2019-01-31] VITALS: Ht 163.8 cm; Wt 67.0 kg
[~2019-01-31 14:26] MED LIST changes: +BIRTH CONTROL PILL PO; +MULT1CAP59 PO; +TRAM-420 PO
[2019-01-31 14:27] VITALS: BP 117/77
[2019-01-31] MEDS ORDERED: CHOL10005 PO (14:32)
[2019-01-31 16:27] LABS: PLATELET COUNT, AUTOMATED 426 K/uL (150-450)
--- NOTE | 2019-02-14 14:33 | ONCOLOGY FOLLOW UP NOTE ---
EVENT DATE: January 31, 2019 REASON FOR FOLLOWUP Diffuse lymphadenopathy, concern for lymphoproliferative disorder. INTERIM HISTORY Kelly returns to clinic for a followup visit today. She had been seen most recently in this clinic in mid January by Amy Vu APRN, FNP, as I was unable to make it to [place] due to severe weather. She is here with her 1-year old daughter, as well as her father. To review, dating back to the end of 2017, she had noted some enlarged lymph nodes in the occipital area. She had reported also some ongoing fatigue, arthralgias and generalized abdominal pain. She had lost quite a bit of weight over the prior year, estimating about a 30-pound weight loss that was not intentional. She reports a lot of stress at home as her mother recently from cancer. Workup to date has included an excisional inguinal lymph node biopsy as well as imaging. Imaging studies have included a head CT performed on January 11, 2019, which was unremarkable. A CT scan of the neck on January 11 revealed lymphadenopathy in the bilateral axillary regions but there was no mediastinal adenopathy. There was a solitary enlarged, 1.5 cm lymph node within the level 2 region bilaterally. There were several small enhancing subcutaneous nodules present in the superior posterior neck, likely small lymph nodes. Chest x-ray on January [address] scan of the abdomen and pelvis on January 16 revealed mild hepatomegaly with a mildly heterogeneous spleen with lobular contour, bilateral adnexal cysts and numerous bilateral inguinal lymph nodes that did not appear enlarged by size criteria. There were also bilateral common iliac and external iliac lymph nodes, not enlarged by size criteria. The patient has not gone for a CT scan of the chest to date. REVIEW OF SYSTEMS Otherwise negative and all systems were reviewed. PAST MEDICAL HISTORY 1. Diabetes mellitus, currently on insulin. 2. Hypothyroidism. 3. Reported anxiety/depression. CURRENT MEDICATIONS Ativan p.r.n., levothyroxine, citalopram and Humalog insulin. ALLERGIES No known drug allergies. SOCIAL HISTORY Patient is and has a 1-year old daughter with Down syndrome. She denies alcohol abuse. There is no history of illicit drug use. FAMILY HISTORY There is a family history of breast cancer in her mother. VITAL SIGNS Temperature 97.1, blood pressure 117/77, heart rate 66, respirations 16, oxygen saturation 94% on room air, weight 67.0 kg. PHYSICAL EXAMINATION GENERAL: Patient is alert and oriented x3, in no apparent distress, sitting in the exam room chair. She is interactive and quite pleasant. Tearful at times. HEENT: Anicteric sclerae. NECK: Several small but palpable lymph nodes, one in the posterior occipital region and another in the right neck just anterior to the sternocleidomastoid. NEUROLOGIC: Grossly nonfocal. Gait is normal. EXTREMITIES: No edema, clubbing or cyanosis. SKIN: No concerning rash or lesion. There is a healed incision over the right neck. LABORATORY STUDIES Reviewed per the [facility] record. IMAGING Please see Oncology History. ASSESSMENT AND PLAN 1. Lymphadenopathy. I had a lengthy and in-depth discussion with Kelly and her family today. Currently, symptomatically she seems to be doing fairly well. Again, she has had a lot of family stressors recently and she had questions today about whether this could contribute to her current situation. In terms of her fatigue, I am almost certain that it is contributing but I would not expect imaging findings based on stress alone as discussed. We discussed the concern for lymphoma and this concern has been raised by imaging, but not confirmed with recent excisional inguinal lymph node biopsy. There had been an attempt to biopsy a right cervical lymph node but this was aborted. We discussed the differential diagnosis for diffuse lymphadenopathy to include malignancy, especially lymphoma as well as an autoimmune process or infectious process. At this point, she does not appear to have acute or chronic infection by symptoms. I would query the possibility of an underlying autoimmune condition, as well. We spend a good deal of time today discussing potential next steps. She does have the option of going for an excision biopsy of an axillary lymph node and I will discuss this further with surgery. As she has not yet had imaging of her chest, I have recommended that she go for a CT PET scan to give us better information. She will need to travel to [facility] to do this. She is in agreement with this plan. I will also add several additional laboratory studies today including several rheumatologic labs, as well as viral serologies. On a positive note, she has had these palpable lymph nodes and generalized symptoms for several months now and they have not been rapidly progressing. My index of suspicion for a high-grade lymphoma at this point is fairly low. The patient was happy to hear this but she appropriately wants to get to the bottom of what is happening as soon as possible. We will try to expedite all of these plans for further diagnostics. Lastly, we discussed potential referral to Rheumatology or perhaps Infectious Disease based on additional workup. The patient is also open-minded to this and is very willing to travel. All questions were answered today. I spent a total of 45 minutes [id number] with the patient and her family and 40 minutes of this was spent in direct counseling and coordination of care. LEONARD
== END 2019-04-16 ==
LOC: ONC 14:26
PROVIDERS: ATTEND Internal Medicine Medical Oncology
DX: R59.0 Localized enlarged lymph nodes (principal); R10.84 Generalized abdominal pain; M54.9 Dorsalgia, unspecified; R53.83 Other fatigue; R63.4 Abnormal weight loss; M54.2 Cervicalgia; M25.512 Pain in left shoulder; M25.511 Pain in right shoulder; F41.9 Anxiety disorder, unspecified; F32.9 Major depressive disorder, single episode, unspecified
CPT/HCPCS: 36415; 82040; 82247; 82310; 82374; 82435; 82550; 82565; 82784; 82947; 83036; 83615; 84075; 84132; 84155; 84160; 84165; 84295; 84450; 84460; 84520; 84550; 85025; 86038; 86039; 86225; 86235; 86256; 86430; 86704; 86705; 86706; 86803; 87340; 87517; 88184; 88185; 88189; 99203; 99212

== ENCOUNTER → 2019-02-26 | Outpatient (CLI) | payer OTHER ==
[~2019-02-26] MED LIST changes: +CHOL10005 PO
--- NOTE | 2019-02-27 16:42 | RADIOLOGY IMAGING REPORT ---
FACILITY: [facility] PATIENT NAME: ANIVAL CRABTREE : [id number] MR: [id number] V: [id number] EXAM DATE: [id number] ORDERING PHYSICIAN: SENAIT MUELLER TECHNOLOGIST: Karla Giron PROCEDURE:BILATERAL DIAGNOSTIC DIGITAL MAMMOGRAM WITH CAD ASSISTED INTERPRETATION & 3D TOMOSYNTHESIS COMPARISON:Left breast Ultrasound performed today. INDICATIONS:enlarged lymph nodes FINDINGS: The breasts are heterogeneously dense which can obscure small masses. There is a vague asymmetry with several punctuate calcifications just medial to midline on the Left CC view. This is not ideally localized on the MLO view. There are several circumscribed nodules in the upper outer quadrant of the Left breast corresponding to lymph nodes as seen on today's Left breast Ultrasound. Also identified on today's Left breast Ultrasound was an ovoid circumscribed hypoechoic mass measuring approximately 8.4 x 8.9 x 4mm in the 3 o'clock position 5cm from the nipple. DIAGNOSTIC CATEGORY 3--PROBABLY BENIGN FINDING. RECOMMENDATIONS: SIX MONTH FOLLOW-UP DIAGNOSTIC MAMMOGRAM: LEFT BREAST. SIX MONTH FOLLOW-UP ULTRASOUND: LEFT BREAST. IMPRESSION: BIRADS 3: Probably benign finding. A 6 month follow-up Left breast Ultrasound and Left mammogram recommended to document stability of above finding. Dictated by: Arabella Quintero M.D. on 02/26/2019 at 17:07 Transcribed by: HEATHER on 02/27/2019 at 11:32 Approved by: Arabella Quintero M.D. on 02/27/2019 at 16:41 [facility]
--- NOTE | 2019-02-27 16:43 | RADIOLOGY IMAGING REPORT ---
FACILITY: [facility] [place] PATIENT NAME: ANIVAL CRABTREE : [id number] MR: [id number] V: [id number] EXAM DATE: [id number] ORDERING PHYSICIAN: SENAIT MUELLER TECHNOLOGIST: My Sepulveda RDMS(ABD,OBGYN,BR),RVT PROCEDURE:US LEFT BREAST COMPARISON:None. INDICATIONS:ENLARGED LYPHNODES & ABNORMAL MAMMOGRAM FINDINGS: There is a 6.3 x 7 x 3.1mm circumscribed ovoid hypoechoic nodule just behind the nipple possibly representing a complex cyst. There is mild acoustic enhancement. In the 3 o'clock position of the Left breast 5cm from the nipple there is an 8.4 x 9 x 4mm ovoid circumscribed hypoechoic mass. Numerous lymph nodes are identified in the Right axilla and mostly appear fatty replaced. The larges measures 2.9 x 1.8 x 1cm. DIAGNOSTIC CATEGORY 3--PROBABLY BENIGN FINDING. RECOMMENDATIONS: SIX MONTH FOLLOW-UP DIAGNOSTIC MAMMOGRAM: LEFT BREAST. SIX MONTH FOLLOW-UP ULTRASOUND: LEFT BREAST. IMPRESSION: BIRADS 3: Probably benign finding. A 6 month follow-up Left breast Ultrasound and a Left mammogram recommended please see today's Left mammogram report. Dictated by: Arabella Quintero M.D. on 02/26/2019 at 17:25 Transcribed by: HEATHER on 02/27/2019 at 14:52 Approved by: Arabella Quintero M.D. on 02/27/2019 at 16:41 [facility]
== END ==
LOC: MAMO 10:13
PROVIDERS: ATTEND Nurse Practitioner
DX: R59.9 Enlarged lymph nodes, unspecified (principal)
CPT/HCPCS: 77062; 77066